=== PATIENT | female | born 1925 | race Caucasian/White ===

== ENCOUNTER → 2016-09-29 | Outpatient (CLI) | payer MEDICARE, OTHER ==
--- NOTE | 2016-09-29 16:01 | Diagnostic Imaging Report ---
Indications: Cough Technique: AP and lateral chest Findings: Comparison: None Lung volumes are increased AP dimension. Linear density is present in each lung base. Lungs otherwise clear. Heart size, pulmonary vasculature within normal limits. Aortic arch mildly calcified. No abnormal mediastinal widening. No pleural abnormalities. Multiple surgical clips in left axilla and chest wall. Thoracic kyphosis is exaggerated. Severe compression fracture of what is likely the T10 vertebral body, greater than 50% height loss. Osteophytes at multiple old displaced margins. IMPRESSION: No evidence of acute cardiopulmonary disease Pulmonary bibasal subsegmental atelectasis versus scarring Aortosclerosis Previous left axillary/chest wall surgery T10 vertebral body compression fracture with exaggerated kyphosis, acuity indeterminate Degenerative spondylosis
== END | disposition home or self-care (01) ==
LOC: RAD 13:56
DX: Z01.818 Encounter for other preprocedural examination (principal); R05 Cough; I10 Essential (primary) hypertension; I70.0 Atherosclerosis of aorta; M47.9 Spondylosis, unspecified; S22.078A Other fracture of T9-T10 vertebra, initial encounter for closed fracture; X58.XXXA Exposure to other specified factors, initial encounter; Y93.9 Activity, unspecified; Y92.9 Unspecified place or not applicable
CPT/HCPCS: 71020